=== PATIENT | female | born 1985 | race Caucasian/White ===

== ENCOUNTER 2023-04-11 04:08 | Day surgery (SDC) | payer OTHER ==
[~2023-04-11] VITALS: Ht 152.4 cm; Wt 107.0 kg
[2023-04-11] VITALS (212 sets, daily range): BP systolic 94–180; BP diastolic 53–123
--- NOTE | 2023-04-11 07:00 | NUR ---
Patient arrived to the [facility] suite, identification and demographics confirmed. Patient to room 9, AAO and ambulatory vitals obtained, ID/allergy/fall bands placed, changed into hospital gown, procedure and timeline explained. All questions answered, patient presents no concerns at this time. Dr. Mas telephoned with patient intake information including usage, dose, last dose/time taken and initial vital signs. Patient history and allergies reviewed with MD. Orders received for 10 mg PO Valium and 0.2 mg PO Clonidine now. Will reassess per protocol in 1.5 hours and update MD with assessment and vitals.
[2023-04-11] MEDS ORDERED: TRAZODONE100 MG PO (08:11)
[2023-04-11] MEDS ORDERED: VENTOLIN HFA108 MCG (08:14)
[2023-04-11] MEDS ORDERED: BREO ELLIPTA 101 INH (08:18)
[2023-04-11 08:24] LABS: ALBUMIN 3.6 g/dL (3.2-5.0); ALKALINE PHOSPHATASE 49 u/l (38-126); ANION GAP 10 (6-22 (CALC)); BILIRUBIN, TOTAL 0.3 mg/dL (0.02-1.3); BUN 9 mg/dL (7-17); BUN/CREATININE RATIO 12 (12-20 (CALC)); CARBON DIOXIDE 23 mmol/l (22-30); CHLORIDE 108 mmol/l (95-108); CREATININE 0.8 mg/dL (0.5-1.0); GFR FOR AFR.AMER. > 60 ML/MIN (>=60 (CALC)); GFR OTHER RACES > 60 ML/MIN (>=60 (CALC)); POTASSIUM 4.1 mmol/l (3.5-5.1); SGOT/AST 22 u/l (14-36); SODIUM 137 mmol/l (137-146)
[2023-04-11 08:59] LABS: BASO% 0.7 % (0-3); EOS% 3.9 % (0-8); HEMATOCRIT 41.8 % (37.0-47.0); HEMOGLOBIN 14.3 g/dl (12.0-16.0); IMMATURE GRANULOCYTES 0.1 % (0.0-5.0); LYMPH% 29.1 % (15-41); MEAN CELL VOLUME 98.6 fL CALC (80.0-100.0); MEAN CORPUSCULAR HGB 33.7 pG CALC (26.0-32.0); MEAN CORPUSCULAR HGB CONC 34.2 g/dL CAL (32.0-36.0); MONO% 9.1 % (2-13); NEUT# 3.95 thou/uL (2.00-7.15); NEUT% 57.1 % (42-76); RED BLOOD COUNT 4.24 mill/uL (4.20-5.60); RED CELL DISTRI WIDTH 12.7 % (11.5-15.5)
--- NOTE | 2023-04-11 09:30 | NUR ---
Dr. Mas telephoned with reassessment and new vital signs. Reviewed initial Valium and Clonidine dose with MD. Orders received for 10MG PO Valium and 0.1 mg PO Clonidine now. Will reassess per protocol in 1.5 hours and update MD with assessment and vitals.
--- NOTE | 2023-04-11 10:30 | NUR ---
Patient resting comfortably in bed. Easily aroused, maintains focus, and drifts back to sleep. No signs of active withdrawal or distress noted at this time. Continuous SPO2, rhythm, and respiratory monitoring initiated. IVF @ 250 mL/HR, room air, VSS.
--- NOTE | 2023-04-11 12:02 | NUR ---
Induction Note Patient to [facility] procedure room. Time out performed at 1200. Patient placed on monitors, Constance hugger, bilateral wrist restraints applied for ET tube protection. Versed 5mg given IV push at 1201 Tourniquet applied to right arm Lidocaine 100mg given at 1202 IV push followed by Rocoronium 10mg at 1203 IV push and held for 90 seconds. Propofol bolus of 130mg given at 1204 IV push. Succinylcholine 80mg given IV push at 1205. Smooth intubation with 7.5 ETT. Positive CO2. Positive Auscultation for air exchange. Patient placed on ventilator for spontaneous ventilation. Placed on Propofol IV drip at 1206. OG inserted. Positive air on auscultation. Positive gastric content. Stomach washed at this time. Naltrexone 50mg given via OG tube with Clonidine 0.2 mg given via OG Tube. OG clamped for 45 minutes. Will monitor patient for symptoms of withdrawal and adjust propfol accordingly.
--- NOTE | 2023-04-11 12:20 | NUR ---
OG close note Stomach washed at this time. Naltrexone 50 mg with Clonidine 0.2 mg via OG tube. OG will be clamped for 45 minutes.
--- NOTE | 2023-04-11 13:10 | NUR ---
OG open note OG open at this time. Gastric content draining into drainage bag. OG to drain for 45 minutes. Propofol will be titrated down based on patient.
--- NOTE | 2023-04-11 13:55 | NUR ---
OG close note Stomach washed at this time. Naltrexone 50 mg with Clonidine 0.3 mg via OG tube. OG will be clamped for 45 minutes.
--- NOTE | 2023-04-11 15:30 | NUR ---
OG close note Stomach washed at this time. Naltrexone 50 mg with Clonidine 0.3 mg via OG tube. OG will be clamped for 45 minutes.
[2023-04-11] MEDS ORDERED: NALTREXONE50 MG PO (17:05)
--- NOTE | 2023-04-11 17:05 | NUR ---
OG close note Stomach washed at this time. Naltrexone 25 mg with Clonidine 0.2 mg via OG tube. OG will be clamped for 45 minutes.
[2023-04-11] MEDS ORDERED: KLONOPIN2 MG PO (17:06)
[2023-04-11] MEDS ORDERED: CLONIDINE0.1 MG PO (17:06)
--- NOTE | 2023-04-11 20:32 | NUR ---
Patient transferred to medical-surgical unit room 289. Report given to CHRISTOPHER Kaba at bedside. Head to toe assessment, treatment, medications, I/O, IV access reviewed with RN. All questions answered. IVF to continue at 100 ml/hr, no adventitious breath sounds. Safety precautions in place, bed locked and in lowest position, call light in reach. Handoff of care at the time this note.
--- NOTE | 2023-04-11 21:00 | NUR ---
RECEIVED BEDSIDE REPORT FROM [facility] NURSE. PT WAS BROUGHT UP IN BED SLEEPING. PT WAS MADE AAWARE OF CHANGE OF NURSE. PT ORIENTATED TO ROOM AND TO PLAN OF CARE. PTSHOWS NO SIGNS OF PAIN OR DISCOMFORT. SAFETY PRECAUTIONS IN PLACE AND CALL LIGHT WITHIN REACH.
--- NOTE | 2023-04-12 | NUR ---
PT IS SLEEPING COMFORTABLLY PT SHOWS NO SIGNS OF PAIN OR DISCOMFORT AT THIS MOMENT. SAFETY PRECAUTIONS IN PLACE AND CALL LIGHT WITHIN REACH.
[2023-04-12 02:30] VITALS: BP 143/83
[2023-04-12 03:32] VITALS: BP 143/83
--- NOTE | 2023-04-12 04:00 | NUR ---
PT IS SITTING IN RECLINER ALERT AND ORIENTATED. STATES THAT SHE FEELS BETTER AND HAS NO PAIN AT THIS TIME. SAFETY PRECAUTIONS IN PLACE AND CALL LIGHT WITHIN REACH.
[2023-04-12 06:18] LABS: BASO% 0.1 % (0-3); HEMATOCRIT 44.8 % (37.0-47.0); HEMOGLOBIN 15.3 g/dl (12.0-16.0); IMMATURE GRANULOCYTES 0.3 % (0.0-5.0); LYMPH% 7.5 % (15-41); MEAN CELL VOLUME 97.2 fL CALC (80.0-100.0); MEAN CORPUSCULAR HGB 33.2 pG CALC (26.0-32.0); MEAN CORPUSCULAR HGB CONC 34.2 g/dL CAL (32.0-36.0); MONO% 1.6 % (2-13); NEUT# 10.45 thou/uL (2.00-7.15); NEUT% 90.5 % (42-76); RED BLOOD COUNT 4.61 mill/uL (4.20-5.60); RED CELL DISTRI WIDTH 12.4 % (11.5-15.5)
[2023-04-12 06:41] LABS: ALBUMIN 3.5 g/dL (3.2-5.0); ALKALINE PHOSPHATASE 50 u/l (38-126); ANION GAP 10 (6-22 (CALC)); BUN 5 mg/dL (7-17); BUN/CREATININE RATIO 8 (12-20 (CALC)); CARBON DIOXIDE 24 mmol/l (22-30); CHLORIDE 105 mmol/l (95-108); CREATININE 0.7 mg/dL (0.5-1.0); GFR FOR AFR.AMER. > 60 ML/MIN (>=60 (CALC)); GFR OTHER RACES > 60 ML/MIN (>=60 (CALC)); POTASSIUM 3.9 mmol/l (3.5-5.1); SGOT/AST 23 u/l (14-36); SODIUM 135 mmol/l (137-146)
[2023-04-12 06:44] LABS: BILIRUBIN, TOTAL 0.5 mg/dL (0.02-1.3)
[2023-04-12 07:40] VITALS: BP 106/71
--- NOTE | 2023-04-12 08:00 | NUR ---
PT SITTING UP IN BED ALERT ABD ORIENTED X 3. PT HAS NO C/O PAIN, BUT WANTS TO WALK AROUND. PT ENCOURAGED TO EAT BREAKFAST AND DRINK FLUIDS. PT LUNGS CLEAR. ABD SOFT WITH ACTIVE BS, PT MABULATES WELL TO BATHROOM FOR TOILETING NEEDS. PT HAS CALL LIGHT WITHIN REACH AND SAFETY MEASURES IN PLACE AT THIS TIME.
[2023-04-12 08:24] VITALS: BP 106/71
--- NOTE | 2023-04-12 08:30 | NUR ---
PT UP TO SHOWER AND TOLERATING WELL. PT IS SOMEWHAT RESLESS AND WANTS TO MOVE AND WALK AROUND. PT HAS CALL LIGHT WITHIN REACH AND SAFETY MEASURES IN PLACE AT THIS TIME.
--- NOTE | 2023-04-12 09:30 | NUR ---
PT RESTLESS AND GIVEN KLONOPIN ORDERED PRN. PT STATES SHE WANTS TO SMOKE A CIGARETTE, ANA IN [facility] NOTIFIED AND STATES SHE WILL BE UP TO TAKE HER OUT,
--- NOTE | 2023-04-12 12:03 | NUR ---
PT SITTING UP IN CHAIR AT BEDSIDE EATING LUNCH. PT HAS NO C/O PAIN AT THIS TIME. PT HAS CALL LIGHT WITHIN REACH.
--- NOTE | 2023-04-12 12:49 | NUR ---
Discharge instructions given. Patient verbalizes understanding of same. Discharged in stable condition via Wheelchair to Home with family. All belongings sent with pt.
== END 2023-04-12 12:23 | disposition home or self-care (01) | DRG 897 ==
LOC: ANR 04:08 → MS2 07:18 → ANR 04-12 12:23
PROVIDERS: ATTEND Anesthesiology
DX: F11.20 Opioid dependence, uncomplicated (principal)
CPT/HCPCS: J2060; J2354; J3475